=== PATIENT | male | born 1960 | race Caucasian/White ===

== ENCOUNTER → 2022-12-10 09:20 | Outpatient (BNVA) | payer OTHER, SELFPAY | PROVIDERS: Family Provider Family Medicine; PCP Family Medicine; Visit Provider Family Medicine | DX: K21.9 Gastro-esophageal reflux disease without esophagitis (principal); M10.9 Gout, unspecified; I25.10 Atherosclerotic heart disease of native coronary artery without angina pectoris; R73.9 Hyperglycemia, unspecified; I10 Essential (primary) hypertension; Z00.00 Encounter for general adult medical examination without abnormal findings | CPT/HCPCS: 80053; 80061; 83036; 84550; 85025 ==

== ENCOUNTER → 2023-01-02 08:22 | Outpatient (BNVA) | payer OTHER, SELFPAY | PROVIDERS: Family Provider Family Medicine; PCP Family Medicine; Visit Provider Family Medicine | DX: E78.5 Hyperlipidemia, unspecified (principal) | CPT/HCPCS: 80048 ==

== ENCOUNTER → 2023-05-06 09:08 | Outpatient (BNVA) | payer OTHER, SELFPAY | PROVIDERS: Family Provider Family Medicine; PCP Family Medicine; Visit Provider Family Medicine | DX: M10.9 Gout, unspecified (principal); I25.10 Atherosclerotic heart disease of native coronary artery without angina pectoris; R73.9 Hyperglycemia, unspecified; I10 Essential (primary) hypertension; M19.90 Unspecified osteoarthritis, unspecified site; Z13.6 Encounter for screening for cardiovascular disorders | CPT/HCPCS: 80053; 80061; 83036; 84550; 85025 ==

== ENCOUNTER → 2023-11-18 08:38 | Outpatient (BNVA) | payer OTHER, SELFPAY | PROVIDERS: Family Provider Family Medicine; PCP Family Medicine; Visit Provider Family Medicine | DX: I10 Essential (primary) hypertension (principal); I25.10 Atherosclerotic heart disease of native coronary artery without angina pectoris; R73.9 Hyperglycemia, unspecified; K21.9 Gastro-esophageal reflux disease without esophagitis; M10.9 Gout, unspecified; Z13.6 Encounter for screening for cardiovascular disorders; M19.90 Unspecified osteoarthritis, unspecified site | CPT/HCPCS: 80053; 80061; 83036; 84550 ==

== ENCOUNTER → 2024-05-10 08:13 | Outpatient (BNVA) | payer MEDICARE, OTHER, SELFPAY | PROVIDERS: Family Provider Family Medicine; PCP Family Medicine; Visit Provider Family Medicine | DX: R73.9 Hyperglycemia, unspecified (principal); I10 Essential (primary) hypertension; I25.10 Atherosclerotic heart disease of native coronary artery without angina pectoris; M10.9 Gout, unspecified; Z13.6 Encounter for screening for cardiovascular disorders; M19.90 Unspecified osteoarthritis, unspecified site; K22.2 Esophageal obstruction | CPT/HCPCS: 80053; 80061; 82607; 83036; 84550 ==

== ENCOUNTER → 2024-11-03 08:33 | Outpatient (BNVA) | payer MEDICARE, OTHER, SELFPAY | PROVIDERS: Family Provider Family Medicine; PCP Family Medicine; Visit Provider Family Medicine | DX: N40.0 Benign prostatic hyperplasia without lower urinary tract symptoms (principal) | CPT/HCPCS: 84153 ==

== ENCOUNTER → 2025-04-26 09:47 | Outpatient (BNVA) | payer MEDICARE, OTHER, SELFPAY | PROVIDERS: Family Provider Family Medicine; PCP Family Medicine; Visit Provider Family Medicine | DX: I10 Essential (primary) hypertension (principal); I25.10 Atherosclerotic heart disease of native coronary artery without angina pectoris; R73.9 Hyperglycemia, unspecified; M10.9 Gout, unspecified; R09.02 Hypoxemia; M19.90 Unspecified osteoarthritis, unspecified site | CPT/HCPCS: 80053; 80061; 83036; 84550; 85025 ==

== ENCOUNTER → 2025-08-18 11:26 | Outpatient (BNVA) | payer MEDICARE, OTHER, SELFPAY | PROVIDERS: Family Provider Family Medicine; PCP Family Medicine; Visit Provider Clinical Nurse Specialist Adult Health | DX: J06.9 Acute upper respiratory infection, unspecified (principal) | CPT/HCPCS: 87400; 87426; 87880 ==

== ENCOUNTER → 2025-10-17 09:57 | Outpatient (BNVA) | payer MEDICARE, OTHER, SELFPAY | PROVIDERS: Family Provider Family Medicine; PCP Family Medicine; Visit Provider Family Medicine | DX: N40.1 Benign prostatic hyperplasia with lower urinary tract symptoms (principal); N39.0 Urinary tract infection, site not specified | CPT/HCPCS: 81000; 84153 ==

== ENCOUNTER 2025-11-02 17:00 | Emergency (ER) | payer MEDICARE, OTHER, SELFPAY ==
--- OUTSIDE RECORDS SUMMARY | 2025-03-29 03:00 | XMS_ITS ---
Author Organization [facility] Address [address] [place] [address] Care Team Providers Care Water Engineer Name Role Phone Chris Leiva Primary Care Provider UnavailNickolas Anthony Unavailable [phone] LUIS DANIEL BRUNER Unavailable [phone] REASON FOR VISIT PVP @ [facility] Encounters Encounter Location Date Provider Diagnosis [facility] [address] [facility] [place] [address] 03/29/2025 LUIS DANIEL BRUNER Plan Of Treatment Next Appt Details Provider Name:LUIS DANIEL Yung, 01/23/2026 02:05:00 PM, [address] [place], [address], Progress Notes * Naldo TOMASDOB: [birth year] (65 yo M)Acc No.[id number]:03/29/2025 Patient: Jim TOUSSAINTNaldo Provider: Gerard BRUNER MD :1960 A ge:64 Y S ex:Male Date:03/29/2025 Address:[address] [place] [address], [place], [place]-[id number] Pcp:Chris Leiva * Billing Information: * Visit Code: * Procedure Codes: * Electronic signature of AUST IN MD ZOHREH on 11/02/2025 at 05:04 PM HAND DEICER ELEMENT WINDER Sign off status: Pending * Provider: Gerard BRUNER MD Date: 0 03/29/2025 Generated for Maria C jones/Jonathan/Consuelo on: 1 01/03/2025 05:04 PM HAND DEICER ELEMENT WINDER
--- OUTSIDE RECORDS SUMMARY | 2025-06-22 02:00 | XMS_ITS ---
Author Organization [facility] Address [address] [place] [address] Care Team Providers Care Senior Supplier Quality Engineer Name Role Phone Chris Leiva Primary Care Provider UnavailNickolas Anthony Unavailable [phone] LUIS DANIEL BRUNER Unavailable [phone] REASON FOR VISIT PVP @ [facility] Encounters Encounter Location Date Provider Diagnosis [facility] [address] [place] [facility] [place] [address] 06/22/2025 LUIS DANIEL BRUNER Plan Of Treatment Next Appt Details Provider Name:LUIS DANIEL Yung, 01/23/2026 02:05:00 PM, [address] [facility], [address], Progress Notes * Naldo TOMASDOB: [birth year] (65 yo M)Acc No.[id number]:06/22/2025 Patient: Jim TOUSSAINTNaldo Provider: Gerard BRUNER MD :1960 A ge:65 Y S ex:Male Date:06/22/2025 Address:[address] [place] [address], [place], [id number] Pcp:Chris Leiva * Billing Information: * Visit Code: * Procedure Codes: * Electronic signature of AUST IN MD ZOHREH on 11/02/2025 at 05:04 PM TRIAGE ASSISTANT Sign off status: Pending * Provider: Gerard BRUNER MD Date: 0 06/22/2025 Generated for Maria C jones/Jonathan/Consuelo on: 1 01/03/2025 05:04 PM TRIAGE ASSISTANT
--- OUTSIDE RECORDS SUMMARY | 2025-11-02 17:05 | XMS_ITS | Patient Health Record ---
Author Organization [facility] Address [address] [place] [address] Care Team Providers Care Latin Dance Instructor Name Role Phone Chris Leiva Primary Care Provider Ochoa Beck JR [phone] Results Component Value Reference Range Flag Notes CBC w\ Auto Diff [id number] Reviewed date:10/26/2025 09:15:50 AM Interpretation: Performing Lab: Notes/Report: WBC 5.2 4.5-11.0 X10'3 RBC 4.85 4.50-5.90 X10'6 Hgb 14.5 13.5-17.5 G/DL Hct 44.1 41.0-53.0 % MCV 90.9 80.0-100.0 FL MCH 29.9 27.0-31.0 PG MCHC 32.9 31.0-37.0 G/DL Platelet 205 150-400 X10'3 RDW-SD 49.0 35.0-49.0 FL RDW-CV 14.4 12.2-15.6 % MPV 10.7 9.2-12.0 FL Neutro Auto% 55.1 40.0-70.0 % Lymph Auto% 28.1 22.0-44.0 % Gladwin Auto% 9.5 3.0-7.0 % HI Eos Auto% 6.1 2.0-4.0 % HI Baso Auto% 0.8 0.0-1.0 % Imm Gran% .4 .0-.4 % Neutro Abs 2.89 .80-7.70 Absolute Neutrophil Count 2890 NA Lymph Abs 1.47 .10-4.10 Gladwin Abs .50 .20-1.00 Eos Abs .32 .00-.40 Baso Abs .04 .00-.20 Imm Gran Abs .02 .00-.10 NRBC# .00 .00-.20 NRBC% .00 .00-.20 /100 intact WBC's Comprehensive Metabolic Pane l (CMP) [id number] Reviewed date:10/26/2025 09:15:50 AM Interpretation: Performing Lab: Notes/Report: Glucose Serum 106 71-110 MG/DL Testing p erformed at [facility], [address] [place] [address] [place] [address]. CLIA ID#: [id number] BUN 12 7-21 MG/DL Creat 1.21 .57-1.17 MG/DL HI S-rhuivf-c-benzoquino ne imine (NAPQI) is a metabolite of acetaminophen, NAPQI concentrations of apparoximately 10 mg/L correlation to toxic levels of acetaminophen demonstrates a greater than or equil to 10% change in results. NAPQI concentrations greater than this may lead to falsely depressed results for patient samples. Use of this assay is not recommended for patients undergoing treatment with phenindione, due to the potential for falsely depressed results. GFR 66.2 NA Calculation pe rformed from GFR calculator provided by the [employer]. Glomerular Filtration rate(GRF) is the best overall index of kidney function. Normal GFR varies according to age,sex, body size, and declines with age. The National [employer] recommends using the CKD-EPI Creatinine Equation(2020) to estimate GFR. BUN/Creat Ratio 9.9 12.0-20.0 % LOW Total Protein 7.0 5.8-8.0 G/DL Albumin 4.1 3.2-4.8 G/DL Globulin 2.9 2.3-3.5 G/DL Alb/Glob 1.4 0.8-2.2 Calcium 9.2 8.7-10.4 MG/DL Sodium 140 136-145 MMOL/L Potassium 4.0 3.5-5.1 MMOL/L Chloride 106 98-107 MMOL/L CO2 24.2 20.0-31.0 MMOL/L Anion Gap 14 5-15 Alk Phos 100 46-116 Bili Total .4 .3-1.2 MG/DL Use of this assay is not recommended for patients undergoing treatment with eltrombopag due to the potential for falsely elevated results. AST/SGOT 30 15-37 UNIT/L ALT/SGPT 26 12-78 UNIT/L Osmo Serum,Calculated 290 280-300 MOSM/KG Parvovirus B19 AB lgG & IgM 70295, 20424 Reviewed date:10/26/2025 09:15:50 AM Interpretation: Performing Lab: Notes/Report: sepsis alert BG 110 ----1511, 1407 @ not clean 3522 Parvovirus AB B19 IgM 0.48 <=0.89 IV NA 0.90 - 1.10 IV ........... Equivocal - Repeat testing in the same laboratory at the same time. [place] Number: [id number] days after the onset of disease. Testing immediately post-exposure levels of IgM antibodies may level of detectable Parvovirus infection by testing sera from patients three to four weeks later Parvovirus B19 detected which INTERPRETIVE INFORMATION: Parvovirus B19 Antibody, [place] [address] occasionally persist for more [address] 7-21 days may be helpful. two appropriately timed specimens, where both tests are done in Reliability Specialist: Cole Wright MD, PhD The best evidence for current infection is a significant change on may indicate a current or Performed By: MOVL B19 IgM antibody. for changing levels of specific IgM antibodies. than 12 months post-infection. recent infection. However, low IgM response may be distinguished from early IgM response to 1.11 IV or greater ........ Positive - IgM antibody to is of no value without a later convalescent specimen. A residual Appearance of an IgM antibody response normally occurs 7 to 14 0.89 IV or less .......... Negative - No significant Parvovirus AB B19 IgG 5.55 <=0.90 IV HI INTERPRETIVE INFORMATION: Parvovirus B19 Antibody, IgG the same laboratory at the same time. The best evidence for current infection is a significant change on Parvovirus B19 detected which 0.91 - 1.09 IV ........... Equivocal - Repeat testing in B19 IgG antibody. level of detectable Parvovirus 7-21 days may be helpful. 0.90 IV or less .......... Negative - No significant may indicate a current or past infection. 1.10 IV or greater ....... Positive - IgG antibody to two appropriately timed specimens, where both tests are done in [facility] Spotted Fever AB P jhonny (RMSF) 11882, 72913 Reviewed date:10/26/2025 09:15:50 AM Interpretation: Performing Lab: Notes/Report: sepsis alert BG 110 ----1511, 1407 @ not clean 3522 RMSF IGG 1:256 <1:64 NA Seroconversion, a fourfold or greater rise in antibody titer, 1:64 - 1:128 ......... Low Positive - Presence of IgG sibirica. between acute and convalescent sera is considered strong evidence of recent infection. Acute-phase specimens are collected during Antibody reactivity to Rickettsia rickettsii antigen should be current or past infection. Less than 1:64 ....... Negative - No significant level of IgG antibody detected. considered Spotted Fever group reactive. Other organisms within the group include R. akari, R. conorrii, R. australis and R. Antibody detected, suggestive of 25 days for paired testing. 1:256 or greater ..... Positive - Presence of IgG the first week of illness and convalescent-phase samples are INTERPRETIVE INFORMATION: Rickettsia rickettsii ([facility]. generally obtained 2-4 weeks after resolution of illness. Ideally acute-phase of illness, submit a marked convalescent sample within facility. If the sample submitted was collected during the Spotted Fever) Ab, IgG current or past infection. these samples should be tested simultaneously at the same antibody detected, suggestive of RMSF IGM <1:64 <1:64 NA 1:64 or greater ...... Positive - Presence of IgM antibody these samples should be tested simultaneously at the same Less than 1:64 ....... Negative - No significant level of of recent infection. Acute-phase specimens are collected during [address] current or recent infection; for the agent (resulting in false positives) and the IgM response Performed By: MOVL Antibody reactivity to Rickettsia rickettsii antigen should be IgM antibody detected. [place] Spotted Fever, as the response may not be specific The CDC does not use IgM results for routine diagnostic testing of for more than 12 months Spotted Fever) Ab, IgM may be persistent from past infection. the first week of illness and convalescent-phase samples are post-infection. Seroconversion, a fourfold or greater rise in antibody titer, antibodies [place] [address] however, low levels of IgM considered Spotted Fever group reactive. Other organisms within between acute and convalescent sera is considered strong evidence sibirica. CLIA Number: [id number] 25 days for paired testing. the group include R. akari, R. conorrii, R. australis and R. Reliability Specialist: Cole Wright MD, PhD generally obtained 2-4 weeks after resolution of illness. Ideally INTERPRETIVE INFORMATION: Rickettsia rickettsii ([facility]. acute-phase of illness, submit a marked convalescent sample within detected, which may indicate a facility. If the sample submitted was collected during the [facility] Spotted Fever AB P jhonny (RMSF) 29892, 42292 Reviewed date:10/26/2025 09:15:50 AM Interpretation: Performing Lab: Notes/Report: sepsis alert BG 110 ----1511, 1407 @ not clean [facility] RMSF IGG 1:128 <1:64 NA 1:256 or greater ..... Positive - Presence of IgG between acute and convalescent sera is considered strong evidence Less than 1:64 ....... Negative - No significant level of generally obtained 2-4 weeks after resolution of illness. Ideally Spotted Fever) Ab, IgG current or past infection. current or past infection. antibody detected, suggestive of of recent infection. Acute-phase specimens are collected during Antibody reactivity to Rickettsia rickettsii antigen should be the group include R. akari, R. conorrii, R. australis and R. sibirica. 1:64 - 1:128 ......... Low Positive - Presence of IgG acute-phase of illness, submit a marked convalescent sample within INTERPRETIVE INFORMATION: Rickettsia rickettsii ([facility]. Seroconversion, a fourfold or greater rise in antibody titer, the first week of illness and convalescent-phase samples are considered Spotted Fever group reactive. Other organisms within facility. If the sample submitted was collected during the IgG antibody detected. these samples should be tested simultaneously at the same Antibody detected, suggestive of 25 days for paired testing. RMSF IGM <1:64 <1:64 NA [address] [facility] does not use IgM results for routine diagnostic testing of however, low levels of IgM acute-phase of illness, submit a marked convalescent sample within for the agent (resulting in false positives) and the IgM response for more than 12 months IgM antibody detected. Reliability Specialist: Cole Wright MD, PhD current or recent infection; Performed By: MOVL detected, which may indicate a INTERPRETIVE INFORMATION: [facility] 25 days for paired testing. Spotted Fever) Ab, IgM Antibody reactivity to Rickettsia rickettsii antigen should be Less than 1:64 ....... Negative - No significant level of Seroconversion, a fourfold or greater rise in antibody titer, sibirica. the group include R. akari, R. conorrii, R. australis and R. may be persistent from past infection. considered Spotted Fever group reactive. Other organisms within 1:64 or greater ...... Positive - Presence of IgM antibody post-infection. CLIA Number: [id number] facility. If the sample submitted was collected during the the first week of illness and convalescent-phase samples are these samples should be tested simultaneously at the same of recent infection. Acute-phase specimens are collected during between acute and convalescent sera is considered strong evidence generally obtained 2-4 weeks after resolution of illness. Ideally antibodies may occasionally persist [place] Spotted Fever, as the [place] [address] [place] 28724 Reviewed date:10/26/2025 09:15:50 AM Interpretation: Performing Lab: Notes/Report: sepsis alert BG 110 ----1511, 1407 @ not clean [facility] Brucella Ab Total <1:20 <1:20 NA Reliability Specialist: Cole Wright MD, PhD with these antigens. A fourfold rise in titer is considered [address] Cross-reactions may occur between Brucella and F. tularensis CLIA Number: [id number] patient with a history [place] [address] diagnostic. A single serum titer of 1:80 or 1:160 is suggestive of INTERPRETIVE INFORMATION: Brucella Ab (Total) by Agglutination Performed By: MOVL brucellosis when accompanied by a compatible clinical course in a antigens and antisera; therefore, parallel tests should [place] [id number] Reviewed date:10/26/2025 09:15:50 AM Interpretation: Performing Lab: Notes/Report: sepsis alert BG 110 ----1511, 1407 @ not clean 3522 CRP <.50 .40-1.00 MG/DL CRP 90208 Reviewed date:10/26/2025 09:15:50 AM Interpretation: Performing Lab: Notes/Report: sepsis alert BG 110 ----1511, 1407 @ not clean 3522 CRP <.50 .40-1.00 MG/DL CMV DNA-PCR QUANT 12526 Reviewed date:10/26/2025 09:15:50 AM Interpretation: Performing Lab: Notes/Report: sepsis alert BG 110 ----1511, 1407 @ not clean 3522 CMV Qnt NAAT Plasma IU/mL Not Detected NA CMV Qnt NAAT Plasma Log IU/mL Not Detected NA CMV Qnt NAAT Plasma Interp Not Detected Not Detected NA Reliability Specialist: Cole Wright MD, PhD results across laboratories, but discrepancies still exist due to detection of the assay. Care should be taken in the interpretation International standardization has improved comparability of assay of inhibitors or CMV DNA concentration below the level of An interpretation of Not Detected does not rule out the presence CLIA Number: [id number] The quantitative range of this test is 1.54 - 7.00 log IU/mL (34.5 - 10,000,000 IU/mL). [address] [place] [address] INTERPRETIVE INFORMATION: CMV by Quantitative NAAT, Plasma Performed By: MOVL commutability issues with the standard. of any single viral load determination. Culture Blood [id number] Reviewed date:10/26/2025 09:15:50 AM Interpretation: Performing Lab: Notes/Report: Culture Blood NALDO Hidalgo Culture Blood t: Culture Blood Culture Blood Accessio [id number] Culture Blood n: Culture Blood Microbiology Culture Blood PROCEDURE: Culture Blood [] Culture Blood SOURCE: Blood BODY SITE: Culture Blood COLLECTED DATE/TIME: 08/25/2025 01:20 CDT RECEIVED DATE/TIME: 08/25/2025 02:09 CDT Culture Blood START DATE/TIME: 08/25/2025 02:09 CDT FREE TEXT SOURCE: RAC Culture Blood FINAL REPORT Culture Blood Final Report [] Culture Blood Verified Date/Time: 08/30/2025 04:30 CDT Culture Blood No growth at 5 days. Urinalysis--10320 Reviewed date:10/26/2025 09:15:50 AM Interpretation: Performing Lab: Notes/Report: Color UA Yellow NA Clarity UA Clear NA Specific gravity UA 1.037 1.005-1.030 HI Urine pH 5.0 5.0-8.0 NA Urine Glucose 2+ NA Urine Bilirubin Negative NA Urine Ketone Trace NA Urine Blood Negative NA Urine Protein 1+ NA Urobilinogen 0.2 0.1-1.0 NA Urine Nitrite Negative NA Urine Leukocyte Negative NA Normal UA Yes Ehrlichiosis AB IgG & M 8666 6, 80290 Reviewed date:10/26/2025 09:15:50 AM Interpretation: Performing Lab: Notes/Report: sepsis alert BG 110 ----1511, 1407 @ not clean 3522 E.Chaffeensis IgG AB 1:512 <1:64 NA 1:64-1:128 ........... Equivocal: Questionable presence detected. the same laboratory at the same time. on two appropriately timed specimens, where both tests are done in infection is a significant change (fourfold difference in titer) approved by the US Food and Drug Administration. This test was suggestive of current or past Ehrlichia chaffeensis IgG antibody performed in a CLIA certified laboratory and is intended for to Ehrlichia chaffeensis detected, Less than 1:64 ....... Negative: No significant level of 1:256 or greater ..... Positive: Presence of IgG antibody strong evidence of recent infection. The best evidence for Seroconversion between acute and convalescent sera is considered of Ehrlichia chaffeensis IgG INTERPRETIVE INFORMATION: Ehrlichia Chaffeensis IgG Ab in 10-14 days may be helpful. clinical purposes. antibody detected. Repeat testing infection. determined by MOVL. It has not been cleared or This test was developed and its performance characteristics E.Chaffeensis IgM AB < 1:16 < 1:16 NA antibody to Ehrlichia approved by the [place] Food and Drug Administration. This test was INTERPRETIVE INFORMATION: Ehrlichia [place]affeensis [place] [address] 1:16 or greater ...... Positive - Presence of IgM Reliability Specialist: Cole Wright MD, PhD antibody detected. performed in a CLIA certified laboratory and is intended for recent infection. of Ehrlichia chaffeensis IgM While the presence of IgM antibodies suggest current or recent for more than 12 months post-infection. A single IgM result should Performed By: MOVL This test was developed and its performance characteristics [address] Less than 1:16 ....... Negative - No significant level determined by MOVL. It has not been cleared or infection, low levels of IgM antibodies may occasionally persist CLIA Number: [id number] be interpreted with caution. clinical purposes. suggestive of current or chaffeensis detected, EBV DNA PCR [id number] Reviewed date:10/26/2025 09:15:50 AM Interpretation: Performing Lab: Notes/Report: sepsis alert BG 110 ----1511, 1407 @ not clean 3522 EBV DNA PCR Sent [place] [facility] [place] [id number] Reviewed date:10/26/2025 09:15:50 AM Interpretation: Performing Lab: Notes/Report: sepsis alert BG 110 ----1511, 1407 @ not clean 3522 CRP <.50 .40-1.00 MG/DL Hepatitis Panel Acute 44561 Reviewed date:10/26/2025 09:15:50 AM Interpretation: Performing Lab: Notes/Report: sepsis alert BG 110 ----1511, 1407 @ not clean 3522 Hep A IgM Non-Reactive NA Hep.B Core IgM Non-Reactive NA Hepatitis Bs AG Non-Reactive NA Hepatitis C AB Non-Reactive NA Ehrlichiosis AB IgG & M 8666 6, 36384 Reviewed date:10/26/2025 09:15:50 AM Interpretation: Performing Lab: Notes/Report: sepsis alert BG 110 ----1511, 1407 @ not clean 3522 E.Chaffeensis IgG AB 1:512 <1:64 NA infection is a significant change (fourfold difference in titer) detected. antibody detected. Repeat testing the same laboratory at the same time. Seroconversion between acute and convalescent sera is considered in 10-14 days may be helpful. Less than 1:64 ....... Negative: No significant level of 1:64-1:128 ........... Equivocal: Questionable presence approved by the US Food and Drug Administration. This test was to Ehrlichia chaffeensis detected, suggestive of current or past on two appropriately timed specimens, where both tests are done in of Ehrlichia chaffeensis IgG performed in a CLIA certified laboratory and is intended for INTERPRETIVE INFORMATION: Ehrlichia Chaffeensis IgG Ab 1:256 or greater ..... Positive: Presence of IgG antibody clinical purposes. infection. determined by MOVL. It has not been cleared or strong evidence of recent infection. The best evidence for Ehrlichia chaffeensis IgG antibody This test was developed and its performance characteristics E.Chaffeensis IgM AB < 1:16 < 1:16 NA performed in a CLIA certified laboratory and is intended for Less than 1:16 ....... Negative - No significant level be interpreted with caution. Performed By: MOVL 1:16 or greater ...... Positive - Presence of IgM This test was developed and its performance characteristics determined by MOVL. It has not been cleared or CLIA Number: [id number] Reliability Specialist: Cole Wright MD, PhD antibody to Ehrlichia While the presence of IgM antibodies suggest current or recent suggestive of current [place] [address] infection[address] antibody detected. INTERPRETIVE INFORMATION: Ehrlichia Chaffeensis IgM Ab of Ehrlichia chaffeensis IgM infection, low levels of IgM antibodies may occasionally persist for more than 12 months post-infection. A single IgM result should chaffeensis detected, approved by the US Food and Drug Administration. This test was Reason For Referral No Information Medications Medication SIG (Take, Route, Frequency, Duration) Notes Start Date End Date Status Spironolactone 25 MG Tablet 1 tablet Ora lly Once a day Active Albuterol Sulfate HFA 108 (90 Base) MCG/ACT Aerosol Solution 1 puff as needed Inhalation every 4 hrs Active Tamsulosin HCl 0.4 MG Capsule 1 capsule Orally Once a day Active Simvastatin 40 MG Tablet 1 tablet in the evening Orally Once a day Active predniSONE 20 MG Tablet 1 tablet with fo od or milk Orally Once a day Active Coreg 25 MG Tablet 1 tablet with food Orally Twice a day Active Doxycycline Hyclate 100 MG Capsule 1 capsule Orally Once a day Active Aspirin 81 81 MG Tablet Delayed Release 1 tablet Orally Once a day Active Sacubitril-Valsartan 97-103 MG Tablet 1 tablet Orally Twice a day Active amLODIPine Besylate 10 MG Tablet 1 tablet Orally Once a day Active Jardiance 10 MG Tablet 1 tablet Orally O nce a day Active Allopurinol 300 MG Tablet 1 tablet Orall y Once a day Active Omeprazole 20 MG Capsule Delayed Release 1 capsule 1/2 to 1 hour before morning meal Orally Once a day Active Lisinopril 40 MG Tablet 1 tablet Orally Once a day Active Fluticasone Furoate 50 MCG/ACT Aerosol Powder Breath Activated 1 puff Inhalation Once a day Active Problems Problem Type SNOMED Code ICD Code Onset Dates Problem Status W/U Status Risk Notes Problem Hypertensive heart failure (57866079) Hypertensive heart disease with heart failure (I11.0) Active confirmed Problem Lower urinary tract symptoms due to benign prostatic hypertrophy (37251673432201) Enlarged prostate with lower urinary tract symptoms (N40.1) Active confirmed Problem Pulmonary hypertension due to left heart disease (894702344) Pulmonary hypertension due to left heart disease (I27.22) Active confirmed Problem Benign prostatic hypertrophy without outflow obstruction (005041927) Benign prostatic hyperplasia without lower urinary tract symptoms (N40.0) Active confirmed Problem Obstructive sleep apnea (55572077) Obstructive sleep apnea (G47.33) Active confirmed Problem Gout (79856604) Gout (M10.9) Active confirmed Problem Continuous positive airway pressure ventilation treatment (18150289) CPAP (continuous positive airway pressure) dependence (Z99.89) Active confirmed Problem Obesity (150632235) Obesity (E66.9) Active confirmed Problem Pancytopenia (965549598) Pancytopenia (D61.818) Active confirmed Problem History of placement of stent for coronary artery disease (situation) (311926575) H/O heart artery stent (Z95.5) Active confirmed Problem Coronary artery disease (56897009) CAD (coronary artery disease) (I25.10) Active confirmed Problem Dilated cardiomyopathy (408591257) Cardiomyopathy, dilated (I42.0) Active confirmed Problem Chronic systolic heart failure (474870030) Chronic HFrEF (heart failure with reduced ejection fraction) (I50.22) Active confirmed Problem Metabolic encephalopathy (76682042) Encephalopathy, metabolic (G93.41) Active confirmed Vital Signs Heart Rate 60 /min 09/19/2025 Temperature 98.2 degrees Fahrenheit 09/19/2025 Height-cm 167.64 cm 09/19/2025 Oximetry 95 % 09/19/2025 Blood pressure diastolic 70 mm Hg 09/19/2025 Weight-kg 107.5 kg 09/19/2025 Height 66 in 09/19/2025 Blood pressure systolic 129 mm Hg 09/19/2025 Weight 237 lbs 09/19/2025 BMI 38.25 kg/m2 09/19/2025 Encounters Encounter Location Date Provider Diagnosis [facility] [address] [place] [id number] 09/19/2025 Ochoa Rm 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 The patient is a 65 yo white male with a hi story of BPH, HTN, gout, LEXI 2. R sided submandibular lymphadenopathy\li ne - - heme onc has been consulted. 3. New onset cotton-cytopenia\line - - begin w/u for heme/onc sources, and infectious sources (RMSF, Ehrlichia, anaplasma, tularemia, burcella, and EBV, CMZV, HIV, hepatitis, and parvovirus), see labs. - s/p 14 days of doxy - responding hematologically to doxy alone strong evidence for tick related pancytopenia - Ehrlichia 1:[address] scan of the head: 1) mildly enlarged R submandibular lymph node. 2) some atrophy\line\line 5. BPH, s/p TURP , MRSA UTI - 25% urinary infections with SA are secondary to bacteremia, will repeat BC's, and check an echocardiograrm\li ne - however may be related to prostate surgery, though this is remove, and no history of recent manipulation. - check urine for atypical MRSA UjTI - BC remains negative - Echo negative for endocarditis 6. antibiotics: home on doxy, for 2 weeks - will even cover coinfection with Lyme, if needed - and should cover the atypical MRSA uTI 7. check lab to confirm resolution of neutropenia, and MRSA UTI Plan Of Treatment No Information Insurance Providers Payer Name Payer Address Payer Phone Subscriber Number Group Number Insured Name Patient Relationship to Insured Coverage Start Date Coverage End Date [place] [address] [place] [phone] [id number] Naldo Brizuela Self - patient is the insured [employer] Medicare Supplement [address] [place] [phone] [id number] Naldo Brizuela Self - patient is the insured
--- OUTSIDE RECORDS SUMMARY | 2025-11-02 17:05 | XMS_ITS | Clinical Summary ---
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
--- OUTSIDE RECORDS SUMMARY | 2025-11-02 17:05 | XMS_ITS | Encounter Summary ---
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
[2025-11-02 17:13] VITALS: BMI 37.1
--- NOTE | 2025-11-02 17:21 | ECG_ITS ---
[facility]: 2025-11-02 Pat Name: Naldo Brizuela Department: Room: Gender: Male Floor Tech: : 1960 Requested By: Fernando Hutton Order Number: [id number] Lexi MD: Imtiaz Redd M.D. Measurements Intervals [place] Rate: 80 P: -13 LA: 232 QRS: -8 QRSD: 174 T: 41 QT: 428 QTc: 495 Interpretive Statements SINUS RHYTHM WITH FIRST DEGREE AV BLOCK RIGHT BUNDLE BRANCH BLOCK [120+ ms QRS DURATION, UPRIGHT V1, 40+ ms S IN I/aVL/V4/V5/V6] No previous ECG available for comparison Electronically Signed On 11-02-2025 23:27:13 TROMMEL TENDER by Imtiaz Redd M.D. [email or web address]
--- NOTE | 2025-11-02 17:21 | CTR_ITS ---
PROCEDURE INFORMATION: Exam: CT Head Without Contrast Exam date and time: 11/02/2025 5:27 PM Age: 65 years old Clinical indication: Stroke-like symptoms; Visual disturbance; Additional info: Symptoms of acute stroke TECHNIQUE: Imaging protocol: Computed tomography of the head without contrast. Radiation optimization: All CT scans at this facility use at least one of these dose optimization techniques: automated exposure control; mA and/or kV adjustment per patient size (includes targeted exams where dose is matched to clinical indication); or iterative reconstruction. Other technique: STROKE PROTOCOL was implemented. COMPARISON: No relevant prior studies available. RADIATION DOSE METRICS: Total DLP (mGy-cm): 1196.87 FINDINGS: Brain: There is mild cortical atrophy. Low-density changes in the white matter are consistent with nonspecific small vessel chronic ischemic change. There is no intracranial mass, hemorrhage or edema. Cerebral ventricles: No ventriculomegaly. Paranasal sinuses: Visualized sinuses are unremarkable. No fluid levels. Mastoid air cells: Visualized mastoid air cells are well aerated. Bones: Unremarkable. No acute fracture. Soft tissues: Unremarkable. CT/CT head thrombolytic 75776 IMPRESSION: No acute intracranial finding. ASSESSMENT: ASPECTS ([place] Stroke Program Early CT Score) is 10.
[2025-11-02 17:24] VITALS: BP 128/89; PULSE 81; RESP 17; TEMP 36.8; O2SAT 96
[2025-11-02 17:52] LABS: Hematocrit 38.0 % (37-53); Hemoglobin 12.50 g/dL (11.27-16.99); Mean Corpuscular HGB Conc 32.9 g/dL (30-55); Mean Corpuscular Hemoglobin 29.3 pg (27-33); Mean Corpuscular Volume 89.0 fl (82-101); Nucleated Red Blood Cells % 0 %; Platelet Count 311 10^3/cmm (157-399); Red Blood Count 4.27 10^6/uL (3.85-5.65); White Blood Count 5.50 10^3/uL (3.29-11.43)
--- NOTE | 2025-11-02 17:59 | ED_ITS ---
HPI - Eye Problem 2 General: Chief complaint: Eye Problems Stated complaint: Blurred vision / (9Xpostop) Time Seen by Provider: 11/02/25 17:21 History of Present Illness: 65-year-old male presents to the emergen cy room with complaints of difficulty with vision. Last known well was at 1430 presented here at 1700. I seen the patient in the CT suite. 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 He has noticed significant double vision and at 230 but he has not had any other symptoms no weakness in his arms or legs no numbness or tingling. Patient complains of double vision when using both eyes but when he covers either eye the double vision resolves. He does have difficulty with tracking with the right eye when asked to track to the left. NIH done on initial presentation. Patient is on warfarin Associated symptoms: Denies fever(s) or neck pain Related Data Home Medications ?Medication ?Instructions ?Recorded ?Confirmed albuterol sulfate 90 mcg/actuation g inhalation 08/18/25 aerosol inhaler carvedilol 25 mg tablet tab PO 12/10/22 11/07/25 simvastatin 40 mg tablet 40 mg PO DAILY cholesterol 0 12/10/22 08/18/25 Previous Rx's ?Medication ?Instructions ?Recorded nitroglycerin 0.4 mg sublingual 0.4 mg sublingual Q5M PRN chest 12/06/23 tablet pain #20 tabs allopurinol 300 mg tablet See Rx Instructions .Route 0 03/17/25 .COMPLEX #90 tabs amlodipine 10 mg tablet 10 mg PO DAILY #90 tabs 03/01 06/24 omeprazole 20 mg capsule,delayed 20 mg PO BID stomach #180 caps 09/14/25 release prednisone 20 mg tablet See Rx Instructions PO DAILY #30 10/14/25 tabs empagliflozin 10 mg tablet 10 mg PO DAILY #1 tab 11/07 (Jardiance) furosemide 40 mg tablet (Lasix) 40 mg PO DAILY chf #1 tab 11/07/25 sacubitril 97 mg-valsartan 103 mg 1 tab PO QDAY #1 tab 11/07/25 tablet tamsulosin 0.4 mg capsule 0.4 mg PO DAILY #1 cap 11/07 Allergies Allergy/AdvReac Type Severity Reaction Status Date / Time No Known Allergies Allergy Verified 11/07/25 09:48 Review of Systems 2 Const: Denies: fever(s) or chills Card: Denies: chest pain Resp: Denies: dyspnea GI: Denies: abdominal pain : Denies: dysuria, urinary frequency or urinary urgency Musc: Denies: neck pain or back pain Skin/Breast: Denies: rash PFSH ED 2 PFSH: Social History Smoking and tobacco/nicotine status: unknown if used tobacco/nicotine Physical Exam 2 Const: COMMON NORMALS: no acute distress GENERAL APPEARANCE: cooperative and comfortable ORIENTATION/CONSCIOUSNESS: Yes awake, Yes oriented to person, Yes oriented to place and Yes oriented to time HENMT: COMMON NORMALS: normocephalic, atraumatic and hearing grossly normal bilaterally HEAD & SCALP: normocephalic and atraumatic Resp: COMMON NORMALS: normal respiratory effort, No retractions, No use of accessory muscles and clear to auscultation bilaterally AUSCULTATION: clear to auscultation bilaterally Cardio: COMMON NORMALS: regular rate, regular rhythm and No murmurs present (Cardio) RATE: regular rate RHYTHM: regular rhythm GI: COMMON NORMALS: Soft to palpation and No hepatosplenomegaly present A USCULTATION: Yes normoactive bowel sounds PALPATION: Yes Soft to palpation, No Tenderness to palpation present (GI), No Guarding due to palpation present (GI) and Yes No hepatosplenomegaly present Extremity: COMMON NORMALS: normal to inspection, capillary refill normal, no clubbing, cyanosis or edema, no calf tenderness and no pedal edema Neuro: SENSORIUM/ORIENTATION: Yes oriented to person, Yes oriented to place and Yes oriented to time Skin: COMMON NORMALS: no rashes or lesions noted GENERAL SKIN EXAM: no rashes or lesions noted Course 2 Vital Signs: Vital signs: Vital Signs Temperature 98.2 F 11/02/25 17:24 Pulse Rate 77 11/02/25 18:20 Respiratory Rate 18 11/02/25 18:20 Blood Pressure 132/81 11/02/25 18:30 Pulse Oximetry 96 11/02/25 17:24 Oxygen Delivery Me thod Room Air 11/02/25 17:24 MDM - Eye Problem Medical Decision Making Medical decision making Social determinants:None I reviewed the patient's medical record. I reviewed the patient's current home meds. Alternate historians: None Differential diagnosis: CVA 6 cranial nerve palsy Lab Review: Labs reviewed as found in the chart. CBC normal INR 1.4. Chemistries no clinically significant abnormalities at this time Imaging: CT head unremarkable Assessment of risk Level of risk: Low Hospitalization considerations: Consider sedation for hospitalization pending CT head and completed stroke workup Reexamination: Unchanged Assessment and plan: Patient's main complaint is the diplopia this is completely eliminated when he covers either eye. He has an obvious 6 cranial nerve palsy. Discussed with on-call neurology also discussed with ophthalmology on-call will discharge patient home have him follow-up with ophthalmology. Lab Data 11/02/25 17:40 11/02/25 17:[address] 11/02/25 17:21 IMPRESSION: No acute intracranial finding. ASSESSMENT: ASPECTS ([place] Stroke Program Early CT Score) is 10. ADDENDUM: 11/02/25 6764 Addendum: THIS REPORT CONTAINS FINDINGS THAT MAY BE CRITICAL TO PATIENT CARE. The findings were verbally communicated via telephone conference with FERNANDO CLIFFORD at 5:42 PM [facility] [employer] on 11/02/2025. The findings were acknowledged and understood. Laboratory Results WBC 5.50 10^3/uL (3.29-11.43) 11/02/25 17:40 RBC 4.27 10^6/uL (3.85-5.65) 11/02/25 17:40 Hgb 12.50 g/dL (11.27-16.99) 11/02/25 17:40 Hct 38.0 % (37-53) 11/02/25 17:40 MCV 89.0 fl (82-101) 11/02/25 17:40 MCH 29.3 pg (27-33) 11/02/25 17:40 MCHC 32.9 g/dL (30-55) 11/02/25 17:40 RDW 13.8 % (12.1-15.1) 11/02/25 17:40 Plt Count 311 10^3/cmm (157-399) 11/02/25 17:40 MPV 10.4 fL (7.4-10.4) 11/02/25 17:40 Neut % (Auto) 60.7 % 11/02/25 17:40 Lymph % (Auto) 24.5 % 11/02/25 17:40 [place] % (Auto) 10.9 % 11/02/25 17:40 Eos % (Auto) 2.7 % 11/02/25 17:40 Baso % (Auto) 0.7 % 11/02/25 17:40 Neut # (Auto) 3.33 10^3/uL (1.8-7.7) 11/02/25 17:40 Lymph # (Auto) 1.4 10^3/uL (0.8-4.8) 11/02/25 17:40 [place] # (Auto) 0.6 10^3/uL (0.2-0.9) 11/02/25 17:40 Eos # (Auto) 0.2 10^3/uL (0.0-0.8) 11/02/25 17:40 Baso # (Auto) 0.0 10^3/uL (0.0-0.1) 11/02/25 17:40 Nucleated RBC % (auto) 0 % 11/02/25 17:40 Nucleated RBCs # 0.0 /100WBC 11/02/25 17:40 ESR 45 mm/hr (0-10) H 11/02/25 17:40 PT 18.00 SECONDS (12.1-14.9) H 11/02/25 17:40 INR 1.40 (0.8-1.2) H 11/02/25 17:40 APTT 31.5 SECONDS (23.9-36.7) 11/02/25 17:40 Sodium 139 mmol/L (136-145) 11/02/25 17:40 Potassium 3.7 mmol/L (3.5-5.1) 11/02/25 17:40 Chloride 106 mmol/L (98-107) 11/02/25 17:40 Carbon Dioxide 23 mmol/L (22-29) 11/02/25 17:40 Anion Gap 13.7 (5-19) 11/02/25 17:40 BUN 11 mg/dL (8-23) 11/02/25 17:40 Creatinine 1.2 mg/dL (0.7-1.2) 11/02/25 17:40 GFR Calculation 60.6 mL/min (90-130) L 11/02/25 17:40 Glucose 107 mg/dL (65-115) 11/02/25 17:40 POC Glucose 110 mg/dL (70-110) 11/02/25 17:36 Calculated Osmolality 288 mOsm/kg (285-295) 11/02/25 17:40 Calcium 8.3 mg/dL (8.5-10.5) L 11/02/25 17:40 Total Bilirubin 0.3 mg/dL (0.15-1.2) 11/02/25 17:40 AST 20 U/L (0-40) 11/02/25 17:40 ALT 9 U/L (0-41) 11/02/25 17:40 Alkaline Phosphatase 82 U/L (40-130) 11/02/25 17:40 Total Protein 6.4 g/dL (6.6-8.7) L 11/02/25 17:40 Albumin 3.1 g/dL (3.5-5.2) L 11/02/25 17:40 Globulin 3.3 g/dL (1.3-4.6) 11/02/25 17:40 All radiology interpretation(s) finalized by discharge Discharge Plan Discharge Patient Disposition: Home Clinical Impression: 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, right Condition: Stable Prescriptions: No Action albuterol sulfate 90 mcg/actuation HFA aerosol inhaler inhalation carvedilol 25 mg tablet PO simvastatin 40 mg tablet 40 mg PO DAILY furosemide [Lasix] 40 mg tablet 40 mg PO DAILY Qty: 1 0RF tamsulosin 0.4 mg capsule 0.4 mg PO DAILY Qty: 1 0RF Jardiance 10 mg tablet 10 mg PO DAILY Qty: 1 0RF sacubitril-valsartan 97-103 mg tablet 1 tab PO QDAY Qty: 1 0RF nitroglycerin 0.4 mg tablet, sublingual 0.4 mg sublingual Q5M PRN (Reason: chest pain) Qty: 20 0RF Rx Instructions: do not exceed 3 doses per episode allopurinol 300 mg tablet See Rx Instructions .ROUTE .COMPLEX Qty: 90 3RF Dose Instruction: TAKE 1 TABLET BY MOUTH ONCE DAILY FOR URIC ACID/GOUT Rx Instructions: TAKE 1 TABLET BY MOUTH ONCE DAILY FOR URIC ACID/GOUT amlodipine 10 mg tablet 10 mg PO DAILY Qty: 90 3RF omeprazole 20 mg capsule,delayed release(/EC) 20 mg PO BID Qty: 180 3RF prednisone 20 mg tablet See Rx Instructions PO DAILY Qty: 30 3RF Rx Instructions: 1 tab po qday x 3 days for gout/arthritis inflammation. May repeat dosing prn orally daily; Discharge Orders: Discharge ED (Routine); Ordered 11/02/25 Ordered By: Fernando Clifford Referrals: Chris Leiva, [Primary Care Provider, Family Practice] Discharge Diet: Usual diet Discharge Activity: Resume usual activity Patient Instructions: Opioid Safety, Pain Management, Patient Portal & [place] Instructions Activity Restrictions/Additional Instructions: [facility] you [facility] your healthcare needs today. It is very important that you follow up as instructed or that you return to the Emergency Department should you have concerns or if your condition changes or worsens in any way. Emergency department visits are focused on emergent conditions, in some cases you may require further evaluation on an outpatient basis. You were seen in the emergency room you were seen in the emergency room with complaints of double vision. On exam you have a cranial nerve palsy of the 6th cranial nerve which causes the right eye to deviate outwardly creating double vision. Recommend you keep the right eye patched and follow-up with [facility]. Your INR was checked today while you are in the emergency room and is 1.4 you should relay that information to your doctor who manages your Coumadin for further instructions on any dosage changes. (Please note that included in your discharge packet is information concerning opioid safety and pain management. This information is given to all patients were discharged from the ER regardless of their discharge diagnosis or the medicines they usually take or are prescribed.) Print Language: [place] Helenian Coding Level of Care Code ED Classroom Instructor for Daniel Luo NIH stroke score NIHSS Level Of Consciousness - 1a: 0 Level Of Consciousness Questions - 1b: Both Correct Level Of Consciousness Commands - 1c: Both Correct Best Gaze - 2: Normal Visual Fisher - 3: No Visual Loss Facial Palsy - 4: Normal Motor Arm Right - 5: No Drift Motor Arm Left - 5: No Drift Motor Leg Right - 6: No Drift Motor Leg Left - 6: No Drift Limb Ataxia - 7: Absent Sensory - 8: Normal Best Language - 9: No Aphasia Dysarthia - 10: Normal Extinction And Inattention - 11: 0 Score Total Score: 0
--- NOTE | 2025-11-02 17:59 | PC.NURSE ---
PATIENT CABG SUTURES VISUALIZED. INTACT, NO SIGNS OF INFECTION, WELL APPROXIMATED.
[2025-11-02 18:03] LABS: INR 1.40 (0.8-1.2); Prothrombin Time 18.00 SECONDS (12.1-14.9)
[2025-11-02 18:08] LABS: Alanine Aminotransferase 9 U/L (0-41); Albumin Level 3.1 g/dL (3.5-5.2); Alkaline Phosphatase 82 U/L (40-130); Anion Gap 13.7 (5-19); Aspartate Amino Transferase 20 U/L (0-40); Blood Urea Nitrogen 11 mg/dL (8-23); Calcium 8.3 mg/dL (8.5-10.5); Carbon Dioxide 23 mmol/L (22-29); Chloride 106 mmol/L (98-107); Globulin 3.3 g/dL (1.3-4.6); Glucose 107 mg/dL (65-115); Osmolality Calculated 288 mOsm/kg (285-295); Potassium 3.7 mmol/L (3.5-5.1); Sodium 139 mmol/L (136-145); Total Protein 6.4 g/dL (6.6-8.7)
[2025-11-02 18:20] VITALS: BP 126/76; PULSE 77; RESP 18
[2025-11-02 18:30] VITALS: BP 132/81
[2025-11-02 18:34] LABS: Partial Thromboplastin Time 31.5 SECONDS (23.9-36.7)
== END 2025-11-02 18:48 | disposition home or self-care (01) ==
PROVIDERS: Emergency Provider Family Medicine; Family Provider Family Medicine; PCP Family Medicine
DX: H49.21 Sixth [abducent] nerve palsy, right eye (principal); Z95.1 Presence of aortocoronary bypass graft
CPT/HCPCS: 36416; 70450; 80053; 82962; 85025; 85610; 85651; 85730; 93005; 99284

== ENCOUNTER → 2025-11-07 10:23 | Outpatient (BNVA) | payer MEDICARE, OTHER, SELFPAY | PROVIDERS: Family Provider Family Medicine; PCP Family Medicine; Visit Provider Family Medicine | DX: Z51.81 Encounter for therapeutic drug level monitoring (principal); I42.9 Cardiomyopathy, unspecified; I25.10 Atherosclerotic heart disease of native coronary artery without angina pectoris; H49.21 Sixth [abducent] nerve palsy, right eye; Z79.01 Long term (current) use of anticoagulants | CPT/HCPCS: 85610 ==

== ENCOUNTER 2025-11-15 15:07 | Outpatient (CLI) | payer MEDICARE, OTHER, SELFPAY ==
[2025-11-15 16:00] LABS: INR 1.16 (0.8-1.2); Prothrombin Time 15.70 SECONDS (12.1-14.9)
== END 2025-11-15 15:08 | disposition home or self-care (01) ==
PROVIDERS: Family Provider Family Medicine; PCP Family Medicine; Visit Provider Surgery
DX: Z79.01 Long term (current) use of anticoagulants (principal); Z95.3 Presence of xenogenic heart valve
CPT/HCPCS: 36415; 85610

== ENCOUNTER 2025-11-18 07:59 | Outpatient (CLI) | payer MEDICARE, OTHER, SELFPAY ==
[2025-11-18 08:45] LABS: INR 1.21 (0.8-1.2); Prothrombin Time 16.20 SECONDS (12.1-14.9)
== END 2025-11-18 08:00 | disposition home or self-care (01) ==
PROVIDERS: PCP Family Medicine; Visit Provider Surgery
DX: Z79.01 Long term (current) use of anticoagulants (principal); Z95.3 Presence of xenogenic heart valve
CPT/HCPCS: 85610

== ENCOUNTER 2025-11-21 08:28 | Outpatient (CLI) | payer MEDICARE, OTHER, SELFPAY ==
[2025-11-21 09:10] LABS: INR 1.41 (0.8-1.2); Prothrombin Time 18.10 SECONDS (12.1-14.9)
== END 2025-11-21 08:29 | disposition home or self-care (01) ==
PROVIDERS: PCP Family Medicine; Visit Provider Surgery
DX: Z79.01 Long term (current) use of anticoagulants (principal); Z95.3 Presence of xenogenic heart valve
CPT/HCPCS: 85610

== ENCOUNTER 2025-11-25 13:09 | Outpatient (CLI) | payer MEDICARE, OTHER, SELFPAY ==
[2025-11-25 14:04] LABS: INR 1.89 (0.8-1.2); Prothrombin Time 22.90 SECONDS (12.1-14.9)
== END 2025-11-25 13:10 | disposition home or self-care (01) ==
LOC: LAB 13:12
PROVIDERS: PCP Family Medicine; Visit Provider Surgery
DX: Z79.01 Long term (current) use of anticoagulants (principal); Z95.3 Presence of xenogenic heart valve
CPT/HCPCS: 85610

== ENCOUNTER 2025-11-30 08:46 | Outpatient (CLI) | payer MEDICARE, OTHER, SELFPAY ==
[2025-11-30 09:48] LABS: INR 2.30 (0.8-1.2); Prothrombin Time 26.70 SECONDS (12.1-14.9)
== END 2025-11-30 08:47 | disposition home or self-care (01) ==
PROVIDERS: PCP Family Medicine; Visit Provider Surgery
DX: Z79.01 Long term (current) use of anticoagulants (principal); Z95.3 Presence of xenogenic heart valve
CPT/HCPCS: 36415; 85610